=== PATIENT | female | born 1985 | race Caucasian/White ===

== ENCOUNTER → 2018-03-01 | Outpatient (CLI) | payer OTHER | LOC: CIMAGING 10:17 | PROVIDERS: ATTEND Physical Medicine & Rehabilitation | DX: M54.2 Cervicalgia (principal) | CPT/HCPCS: 72052-PO ==

== ENCOUNTER 2018-03-06 12:39 | Emergency (ER) | payer OTHER ==
[2018-03-06 12:48] VITALS: BP 122/81
--- NOTE | 2018-03-06 13:18 | EDPHY ---
H & P Time Seen by Provider: 03/06/18 12:56 HPI/ROS: HPI Neck pain. 32-year-old female by private vehicle with boyfriend. This patient reports that 2 months ago she slipped and fell backwards at work, twisting her neck. She reports that prior to this she had had right lateral neck pain for about 10 years. She reports that after this fall her pain was worse. She was recently seen at an urgent care with complaint of right trapezial and right lower cervical paraspinal pain, unchanged from prior, she had cervical spine x-rays done which were reportedly unremarkable. She presents to the emergency department complaining of the same pain. She states that she just started a physical therapy program yesterday for this pain. She has had no loss of sensation, weakness or altered sensation in her extremities. She denies any neurologic complaints. She has no history of acute trauma. ROS: Constitutional: No fever, no chills. No weakness. Musculoskeletal: No back pain. As above. No extremity pain. Skin: No rashes. Neurological: No headache. No focal weakness or altered sensation. Past medical history: She denies any significant past medical history. Social history: Nonsmoker. No alcohol. Here with her boyfriend. Physical Exam: General Appearance: Alert, no distress. Mildly anxious. This patient is responding to questions appropriately and in full sentences. This patient appears well-hydrated and well-nourished. Head: Normocephalic atraumatic. Eyes: Pupils equal and round no pallor or injection. No lid edema, erythema or injection. Neck: No midline cervical, thoracic tenderness on palpation. She does have mild vague tenderness on palpation of the mid right trapezius muscle body up into the lateral posterior soft tissues on the right side of her neck. She is neurologically intact in all myotomes in dermatomes of the bilateral upper extremities. The anterior lateral soft tissues of the neck are nontender on palpation. Respiratory: There are no retractions, lungs are clear to auscultation with good air movement bilaterally. Neurological: Motor sensory function is grossly intact. Cranial nerves are normal. Gait is normal. Skin: Warm and dry, no rashes. Extremities are symmetrical. All joints range without pain or impingement. Psychiatric: No agitation. No depression. Database: EKG: Imaging: Procedures: Emergency department course: Triage vital signs reviewed. She was borderline tachycardic in triage. Otherwise vital signs normal. She is afebrile. I feel the tachycardia in triage was secondary to anxiety. She was not tachycardic on my exam. She has no red flags on her cervical exam. She clears by nexus criteria. I did discuss advanced imaging with her but I explained my concerns about unnecessary exposure to radiation. She has no neurologic complaints I do not feel that emergent MR imaging is needed at this time. She just started a physical therapy program on Sunday. I advised that we give the physical therapy program sometime to have affect. I also discussed follow-up with [facility] for further evaluation. I discussed high-dose ibuprofen over the next 3 days and a short course of Flexeril. She is in agreement with this plan. She feels comfortable going home with her boyfriend. Follow-up and return to emergency department precautions have been reviewed with her. All of her questions were answered. She was discharged from the emergency department in good condition. Differential Diagnosis: The differential diagnosis on this patient includes but is not limited to cervical strain, trapezius muscle strain. Fracture, subluxation, dislocation of the cervical spine, other significant traumatic injury, vertebral artery dissection, carotid artery dissection, meningitis, encephalitis unlikely. This represents a partial list of diagnoses considered. These considerations are based on history, physical exam, past history, reassessment and diagnostic testing. Smoking Status: Never smoked Constitutional: Initial Vital Signs Temperature (C) 36.5 C 03/06/18 12:45 Heart Rate 104 H 03/06/18 12:45 Respiratory Rate 16 03/06/18 12:45 Blood Pressure 122/81 H 03/06/18 12:45 O2 Sat (%) 97 03/06/18 12:45 O2 Delivery Mode Room Air Allergies/Adverse Reactions: No Known Allergies Allergy (Verified 03/06/18 12:45) Home Medications: Medication Instructions Recorded Tobramycin 0.3% [Tobrex 0.3%] 2 drops RTEYE QID #1 opht.btl 10/31/13 Cyclobenzaprine [Flexeril 10 MG 10 mg PO TID #9 tab 03/06/18 (*)] Departure - Departure Disposition: Home, Routine, Self-Care Clinical Impression: Cervical strain Condition: Good Instructions: Cervical Strain (ED), Neck Pain (ED) Additional Instructions: Read and follow provided instructions. Follow-up with [facility] in 1-2 days for re-evaluation. Call their office today for appointment time. Continue you're physical therapy as prescribed. You need to give this more time to have an affect. Take muscle relaxer medication as prescribed. This medication will make you drowsy. Do not drive while taking this medication. Ibuprofen dosin mg every 6 hours with meals for the next 3 days only. Take only as needed for pain. Return to the emergency department for worsening pain, loss of sensation or weakness in your arms or other serious concerns. Referrals: [facility] [Outside] - As per Instructions Prescriptions: Cyclobenzaprine [Flexeril 10 MG (*)] 10 mg PO TID #9 tab
== END 2018-03-06 13:54 | disposition home or self-care (01) ==
DX: S16.1XXA Strain of muscle, fascia and tendon at neck level, initial encounter (principal); Z91.81 History of falling